=== PATIENT | female | born 1975 | race Caucasian/White ===

== ENCOUNTER 2019-07-07 18:33 | Emergency (ER) | payer OTHER ==
[~2019-07-07] VITALS: Ht 154.9 cm; Wt 54.0 kg
[2019-07-07 18:52] LABS: *URINE HCG, QUAL NEGATIVE (NEGATIVE)
[2019-07-07 18:53] LABS: *BILIRUBIN,URIN NEGATIVE (NEGATIVE); *BLOOD, URINE 1+ (NEGATIVE); *CLARITY,URINE CLEAR (CLEAR); *COLOR,URINE YELLOW (YELLOW); *KETONES,URINE NEGATIVE (NEGATIVE); *UROBILINOGEN,URINE 0.2 E.U./dl (NORMAL); LEUKOCYTE ESTERASE ,URINE NEGATIVE (NEGATIVE); NITRITE, URINE NEGATIVE (NEGATIVE); PH,URINE 5.5 (5.0-8.0); UGLUCOSE NEGATIVE (NEGATIVE)
[2019-07-07 18:59] LABS: BACTERIA,URINE FEW /HPF (NONE SEEN); SQUAMOUS EPITHELIAL CELL,UR MODERATE /HPF (NONE SEEN); WBC,URINE 0-3 /HPF (0-3)
--- NOTE | 2019-07-07 19:19 | NUR ---
Dr Perrin is at bedside evaluating the patient, pending MD orders@this time.
--- NOTE | 2019-07-07 19:30 | NUR ---
PATIENT WITH C/O ABD PAIN ALERT ORIENTED X4 BREATHING NONLABORED WILL MEDICATE ORDERED.
[2019-07-07 19:59] LABS: BASOPHILS % (AUTO) 0.4 % (0.0-2.0); EOSINOPHILS % (AUTO) 0.5 % (0.0-7.0); HEMATOCRIT 42.4 % (31.2-41.9); HEMOGLOBIN 13.8 g/dL (10.9-14.3); LYMPHOCYTES # (AUTO) 0.8 K/uL (20.0-40.0); LYMPHOCYTES % (AUTO) 22.3 % (20.5-51.5); MEAN CORPUSCULAR HEMOGLOBIN 29.8 uug (24.7-32.8); MEAN CORPUSCULAR HGB CONC 33 g/dL (32.3-35.6); MEAN CORPUSCULAR VOLUME 91.5 fL (75.5-95.3); MONOCYTES # (AUTO) 0.3 K/uL (2.0-10.0); MONOCYTES % (AUTO) 7.5 % (0.0-11.0); NEUTROPHILS # (AUTO) 2.5 K/uL (1.8-8.9); NEUTROPHILS % (AUTO) 69.3 % (38.5-71.5); PLATELET COUNT (AUTO) 155 K/uL (179-408); RED BLOOD CELL COUNT(AUTO) 4.64 MIL/uL (3.63-4.92); WHITE BLOOD COUNT (AUTO) 3.6 K/uL (3.8-11.8)
[2019-07-07 20:06] LABS: CREATININE 0.6 mg/dL (0.6-1.3); POTASSIUM 3.8 mmol/L (3.5-5.1)
[2019-07-07 20:11] LABS: BILIRUBIN,DIRECT 0.1 mg/dL (0.0-0.2); BILIRUBIN,TOTAL 0.3 mg/dL (0.2-1.0); TOTAL PROTEIN, SERUM 6.6 g/dL (6.4-8.2)
[2019-07-07] MEDS ORDERED: METOCLOPRAMIDE HCL 10 MG/2 ML VIAL ONE (20:13)
[2019-07-07] MEDS ORDERED: KETOROLAC TROMETHAMINE 30 MG INJ ONE (20:13)
[2019-07-07] MEDS: METOCLOPRAMIDE HCL 10 MG/2 ML VIAL IV ONE (20:28)
[2019-07-07] MEDS: IV NORMAL SALINE 1000 ML BAG IV ONE (20:29)
[2019-07-07] MEDS: KETOROLAC TROMETHAMINE 15 MG INJ IVP ONE (20:29)
--- NOTE | 2019-07-07 20:30 | NUR ---
ULTRASOUND DONE AT THE BEDSIDE.
--- NOTE | 2019-07-07 21:39 | NUR ---
patient is alert states she feels better.
[2019-07-07 21:40] VITALS: BP 100/57
== END 2019-07-07 21:42 | disposition home or self-care (01) ==
LOC: ER 18:33
DX: R10.30 Lower abdominal pain, unspecified (principal); R11.0 Nausea
CPT/HCPCS: 36415; 76856; 80048; 80076; 81000; 81001; 83690; 84484; 84702; 84703; 85025; 96374; 96375; 99284; J1885; J2765; 70030-TC; A4663; J7030